=== PATIENT | female | born 1975 | race Asian ===

== ENCOUNTER 2017-11-28 09:12 | Emergency (ER) | payer MEDICAID, OTHER ==
[~2017-11-28] VITALS: Ht 162.6 cm; Wt 77.3 kg
[2017-11-28] MEDS ORDERED: IBUPROFEN 600 MG TABLET PO ONE (11:00)
[2017-11-28 11:14] VITALS: BP 148/88
== END 2017-11-28 11:23 | disposition home or self-care (01) ==
LOC: EMS 09:12
DX: S83.92XA Sprain of unspecified site of left knee, initial encounter (principal); F12.90 Cannabis use, unspecified, uncomplicated; F17.210 Nicotine dependence, cigarettes, uncomplicated; X50.3XXA Overexertion from repetitive movements, initial encounter; Y93.41 Activity, dancing; Y92.89 Other specified places as the place of occurrence of the external cause; Y99.8 Other external cause status
CPT/HCPCS: 29505; 99284